=== PATIENT | female | born 1990 | race Asian ===

== ENCOUNTER 2020-07-11 17:14 | Emergency (ER) | payer OTHER, SELFPAY ==
[2020-07-11 19:39] VITALS: BP 151/87; PULSE 80; RESP 16; TEMP 36; O2SAT 96; BMI 25.6
[2020-07-11 20:08] LABS: MANUAL DIFF FLAG NO
[2020-07-11 20:09] LABS: Basophils Percent Auto 0.3 % (0-2); Eosinophils Absolute Auto 0.1 X10*3/uL (0.0-0.4); Eosinophils Percent Auto 0.8 % (0-4); Hematocrit 43.1 % (37-47); Imm Gran Abs Auto 0.02 X10*3/uL (0.00-0.03); Imm Gran Pct Auto 0.2 % (0.0-0.4); Lymphocytes Absolute Auto 3.3 X10*3/uL (1.2-4.9); Lymphocytes Percent Auto 34.1 % (20-40); Mean Corpuscular HGB Conc 32.5 g/dl (31.0-35.0); Mean Corpuscular Volume 83.2 fL (80-98); Mean Platelet Volume 8.5 fL (9.4-12.3); Monocytes Absolute Auto 0.7 X10*3/uL (0.1-1.2); Monocytes Percent Auto 7.7 % (2-11); Neutrophils Absolute Auto 5.4 X10*3/uL (2.0-8.3); Neutrophils Percent Auto 56.9 % (45-73); Platelet Count 334 X10*3/uL (160-400); Red Blood Count 5.18 X10*6/uL (4.20-5.50); Red Cell Distribution Width 12.6 % (11.0-16.0); White Blood Count 9.5 X10*3/uL (4.8-10.8)
[2020-07-11 20:11] LABS: Appearance Urine CLEAR; Color Urine YELLOW; Glucose Urine UA NEG (NEG); Leukocyte Esterase Urine NEG (NEG); Nitrite Urine NEG (NEG); PH 6.5 (5.0-8.0); Urine Blood NEG (NEG); Urine Ketones 5 MG/DL (NEG); Urine Protein NEG (NEG-TRACE)
[2020-07-11 20:13] LABS: UPreg QC Valid YES; Urine Pregnancy NEGATIVE (NEGATIVE)
[2020-07-11 20:35] LABS: Alanine Aminotransferase 14 U/L (0-31); Albumin Level 4.2 g/dL (3.5-5.0); Alkaline Phosphatase 58 U/L (39-117); Anion Gap 17 (12-20); Aspartate Amino Transferase 15 U/L (5-31); Bilirubin Total 0.5 mg/dL (0.0-1.0); Blood Urea Nitrogen 16 mg/dL (9-16); Carbon Dioxide 22 mmol/L (22-29); Chloride 105 mmol/L (96-108); Creatinine Clr Calc Pharmacy 104.9; Estimated Glomerular Filt Rate > 60; Glucose Random 82 mg/dL (60-115); Potassium 4.2 mmol/L (3.3-5.1); Sodium 140 mmol/L (135-145); Total Protein 7.2 g/dL (6.5-8.0)
--- NOTE | 2020-07-11 22:34 | PC.NURSE ---
Pt reports having her second Moderna vaccine on 06/30. Pt reports elevated fever, CAMILO, bodyaches, chills, dizziness and N/V. Pt had a gastric bypass on 07/19/19. Pt reports decreased PO, states she is unable to hold anything down. Pt reports poor PO for days. Pt also reporting persistent episodes of vomiting the last several days. MD at bedside for primary eval.
--- NOTE | 2020-07-11 22:35 | ECG_ITS ---
Test Reason : PAPITATIONS Blood Pressure : / mmHG Vent. Rate : 062 BPM Atrial Rate : 062 BPM P-R Int : 128 ms QRS Dur : 094 ms QT Int : 426 ms P-R-T Axes : 049 067 058 degrees QTc Int : 432 ms Normal sinus rhythm with sinus arrhythmia Normal ECG No previous ECGs available Referred By: Sangita Johnson Electronically Signed By:JOSEF DAMIAN
[2020-07-11 22:37] VITALS: BP 133/93; PULSE 74; RESP 16
[2020-07-11 22:46] VITALS: BP 130/92; PULSE 75
--- NOTE | 2020-07-11 22:46 | ED.GENADULT ---
HPI - General Adult General Chief complaint: Dizziness Stated complaint: DIZZINESS Time Seen by Provider: 07/11/20 22:32 Source: patient Mode of arrival: ambulatory Limitations: no limitations History of Present Illness HPI narrative: Patient comes emergency room complaining of feeling dizzy since her 2nd dose of mother the injection. Patient states it happened on June 30. 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 Patient states that for the last month she has been complaining of right lower quadrant pain, she has been worked up at [facility], seems to have gallstones, but nothing has been new since her injection of mother in a on June. MD complaint: Dizziness Related Data Previous Rx's Medication Instructions Recorded promethazine 25 mg PO Q6H PRN #14 tab 07/11/20 Allergies Allergy/AdvReac Type Severity Reaction Status Date / Time No Known Allergies Allergy Verified 07/11/20 19:39 Review of Systems Review of Systems: Constitutional : No Weight loss, No Fever, No Chills, No Night Sweats, had fever after the moderna injection, now resolved ENT/Mouth : No Hearing loss, No Ear Pain, No Nasal Congestion, No Sinus Pain, No Hoarseness, No sore throat, No Rhinorrhea, No Swallowing Difficulty Eyes: No Eye Pain, No Swelling, No Redness, No Foreign Body, No Discharge, No Vision Changes Cardiovascular : No Chest Pain, No SOB, had episodes of dyspnea after the injection, none in the last few days Respiratory : No Cough, No Sputum, No Wheezing, No Smoke Exposure, No Dyspnea Gastrointestinal : No Nausea, No Vomiting, No Diarrhea, No Constipation, No abdominal Pain, No Hematochezia, No Melena Genitourinary : no irregular bleeding, No Dysuria, No Urinary Frequency, No Hematuria, No Urinary Incontinence, No Urgency, No Flank Pain, No Urinary Flow Changes, No Hesitancy Musculoskeletal : No joint pain, No Myalgias, No Joint Swelling Skin : No Skin Lesions, No rash Neuro : No Weakness, No Numbness, No Paresthesias, No Loss of Consciousness, No Dizziness, No Headache Psych : Mild anxiety, No Depression, No SI/HI/AH/VH, No Social Issues, Heme/Lymph: No Bruising, No Bleeding,No Lymphadenopathy Endocrine : No Polyuria, No Polydipsia, No Temperature Intolerance [facility] Past Medical History Medical History (Updated 07/11/20 @ 23:59 by Sangita Johnson MD) Joint pain PCOS (polycystic ovarian syndrome) Surgical History (Updated 07/11/20 @ 19:43 by Mitali Burns) History of Yair-en-Y gastric bypass Hx of shoulder surgery Social History Social History Advance Directives: No Advance Directives Information Provided: Yes Physical Exam Vital Signs: Vital Signs: Last Vital Signs Temp 96.8 F 07/11/20 19:39 Pulse 72 07/12/20 00:13 Resp 16 07/12/20 00:13 BP 135/84 07/12/20 00:13 Pulse Ox 99 07/12/20 00:13 Body Mass Index 25.6 Course Course Course Narrative: Since the patient has been in the emergency room, she has not had any episodes of vomiting or diarrhea. Patient's orthostatics were normal, her labs were normal, EKG normal, patient was walked around the emergency room, she did not have shortness of breath, drop in oxygen saturation, or tachycardia. I discussed with the patient that if she continues having the symptoms, she may need a Holter monitor. Patient states that she has Zofran at home, does not help with the nausea. Discussed with the patient trying Phenergan which she agrees. Medical Decision Making Lab Data Result diagrams: 07/11/20 19:50 07/11/20 19:50 Labs: Lab Results 07/11/20 07/11/20 07/11/20 Range/Units 19:50 19:50 19:50 WBC 9.5 (4.8-10.8) X10*3/uL RBC 5.18 (4.20-5.50) X10*6/uL Hgb 14.0 (12.0-16.0) g/dl Hct 43.1 (37-47) % MCV 83.2 (80-98) fL MCH 27.0 (27.0-33.0) pg MCHC 32.5 (31.0-35.0) g/dl RDW 12.6 (11.0-16.0) % Plt Count 334 (160-400) X10*3/uL MPV 8.5 L (9.4-12.3) fL Immature Gran % (Auto) 0.2 (0.0-0.4) % Neut % (Auto) 56.9 (45-73) % Lymph % (Auto) 34.1 (20-40) % [place] % (Auto) 7.7 (2-11) % Eos % (Auto) 0.8 (0-4) % Baso % (Auto) 0.3 (0-2) % Lymph # (Auto) 3.3 (1.2-4.9) X10*3/uL [place] # (Auto) 0.7 (0.1-1.2) X10*3/uL Eos # (Auto) 0.1 (0.0-0.4) X10*3/uL Baso # (Auto) 0.0 (0.0-0.2) X10*3/uL Abs Immat Gran (auto) 0.02 (0.00-0.03) X10*3/uL Absolute Neuts (auto) 5.4 (2.0-8.3) X10*3/uL Absolute Nucleated RBC 0.000 (0.0-0.012) X10*3/uL Nucleated RBC % (auto) 0.0 (0.0-0.2) /100WBC Sodium 140 (135-145) mmol/L Potassium 4.2 (3.3-5.1) mmol/L Chloride 105 (96-108) mmol/L Carbon Dioxide 22 (22-29) mmol/L Anion Gap 17 (12-20) BUN 16 (9-16) mg/dL Creatinine 0.79 (0.5-1.4) mg/dL Estim Creat Clear Calc 104.9 Estimated GFR > 60 Random Glucose 82 (60-115) mg/dL Calcium 9.0 (8.4-10.2) mg/dL Total Bilirubin 0.5 (0.0-1.0) mg/dL AST 15 (5-31) U/L ALT 14 (0-31) U/L Alkaline Phosphatase 58 (39-117) U/L Troponin I High Sens < 3.5 (<3.5-17.0) ng/L Total Protein 7.2 (6.5-8.0) g/dL Albumin 4.2 (3.5-5.0) g/dL Urine Color Urine Appearance Urine pH (5.0-8.0) Ur Specific [place] (1.005-1.025) Urine Protein (NEG-TRACE) MG/DL Urine Glucose (UA) (NEG) MG/DL Urine Ketones (NEG) MG/DL Urine Blood (NEG) Urine Nitrite (NEG) Ur Leukocyte Esterase (NEG) Urine Test (NEGATIVE) 07/11/20 Range/Units 19:58 WBC (4.8-10.8) X10*3/uL RBC (4.20-5.50) X10*6/uL Hgb (12.0-16.0) g/dl Hct (37-47) % MCV (80-98) fL MCH (27.0-33.0) pg MCHC (31.0-35.0) g/dl RDW (11.0-16.0) % Plt Count (160-400) X10*3/uL MPV (9.4-12.3) fL Immature Gran % (Auto) (0.0-0.4) % Neut % (Auto) (45-73) % Lymph % (Auto) (20-40) % [place] % (Auto) (2-11) % Eos % (Auto) (0-4) % Baso % (Auto) (0-2) % Lymph # (Auto) (1.2-4.9) X10*3/uL [place] # (Auto) (0.1-1.2) X10*3/uL Eos # (Auto) (0.0-0.4) X10*3/uL Baso # (Auto) (0.0-0.2) X10*3/uL Abs Immat Gran (auto) (0.00-0.03) X10*3/uL Absolute Neuts (auto) (2.0-8.3) X10*3/uL Absolute Nucleated RBC (0.0-0.012) X10*3/uL Nucleated RBC % (auto) (0.0-0.2) /100WBC Sodium (135-145) mmol/L Potassium (3.3-5.1) mmol/L Chloride (96-108) mmol/L Carbon Dioxide (22-29) mmol/L Anion Gap (12-20) BUN (9-16) mg/dL Creatinine (0.5-1.4) mg/dL Estim Creat Clear Calc Estimated GFR Random Glucose (60-115) mg/dL Calcium (8.4-10.2) mg/dL Total Bilirubin (0.0-1.0) mg/dL AST (5-31) U/L ALT (0-31) U/L Alkaline Phosphatase (39-117) U/L Troponin I High Sens (<3.5-17.0) ng/L Total Protein (6.5-8.0) g/dL Albumin (3.5-5.0) g/dL Urine Color YELLOW Urine Appearance CLEAR Urine pH 6.5 (5.0-8.0) Ur Specific [place] 1.010 (1.005-1.025) Urine Protein NEG (NEG-TRACE) MG/DL Urine Glucose (UA) NEG (NEG) MG/DL Urine Ketones 5 (NEG) MG/DL Urine Blood NEG (NEG) Urine Nitrite NEG (NEG) Ur Leukocyte Esterase NEG (NEG) Urine Test NEGATIVE (NEGATIVE) ECG Data Attestation: I personally reviewed and interpreted this ECG as follows: (Heart rate 62, sinus rhythm, no ST segment depressions or elevations, no T-wave inversions, QTC 432) Discharge Plan Discharge Clinical Impression: Dizziness, Nausea Patient Disposition: Home, Self-Care Instructions: Dizziness (ED) Additional Instructions: Please follow-up with your primary care physician tomorrow. If you have any worsening or new symptoms, please return to the emergency room or call 911 Prescriptions: New promethazine 25 mg tablet 25 mg PO Q6H PRN (Reason: nausea and vomiting) Qty: 14 RF: 0 Interventions: ED Discharge Assessment Last Done: 07/12/20 00:16 Discharge Date/Time: 07/12/20 00:16
[2020-07-11 22:48] VITALS: BP 129/63; PULSE 66
[2020-07-11 22:49] VITALS: BP 128/86; PULSE 72
--- NOTE | 2020-07-11 22:58 | PC.NURSE ---
Orthos and EKG obtained by this RN.
[2020-07-11 23:24] LABS: Troponin-I High Sensitivity < 3.5 ng/L (<3.5-17.0)
--- NOTE | 2020-07-11 23:24 | PC.NURSE ---
While ambulating in the halls, HR remained stable @ 80-84 bpm. Pt reporting SOB and palpitations while ambulating. aware.
[2020-07-12 00:13] VITALS: BP 135/84; PULSE 72; RESP 16; O2SAT 99
== END 2020-07-12 00:16 | disposition home or self-care (01) ==
PROVIDERS: Emergency Provider Emergency Medicine; PCP Nurse Practitioner Family
DX: R42 Dizziness and giddiness (principal); R11.0 Nausea
CPT/HCPCS: 36415; 80053; 81003; 81025; 84484; 85025; 93005; 99284

== ENCOUNTER → 2024-08-08 13:42 | Outpatient (BNV) | payer OTHER, SELFPAY | PROVIDERS: PCP Nurse Practitioner Family; Visit Provider Nurse Practitioner Family | DX: D64.9 Anemia, unspecified (principal) | CPT/HCPCS: 99204 ==

== ENCOUNTER 2024-08-19 13:00 | Outpatient (RCR) | payer OTHER, SELFPAY ==
[2024-08-12 11:50] VITALS: BP 126/62; PULSE 88; RESP 16; TEMP 36.6; O2SAT 99
[2024-08-12] MEDS: Ferric Carboxymaltose 750 MG in 0.9 % Sodium Chloride 250 ML 1060 MG IV (12:36)
[2024-08-19 12:49] VITALS: BP 107/63; PULSE 77; RESP 16; TEMP 36.4; O2SAT 99
[2024-08-19] MEDS: Ferric Carboxymaltose 750 MG in 0.9 % Sodium Chloride 250 ML 1060 MG IV (13:29)
== END 2024-08-19 13:56 | disposition home or self-care (01) ==
LOC: HO.INF 13:00
PROVIDERS: PCP Nurse Practitioner Family; Visit Provider Nurse Practitioner Family
DX: D64.9 Anemia, unspecified (principal)
CPT/HCPCS: 96365; J1439; J1756

== ENCOUNTER 2024-12-12 09:39 | Outpatient (REF) | payer OTHER, SELFPAY ==
--- OUTSIDE RECORDS SUMMARY | 2024-12-12 10:11 | XMS_ITS | Continuity of Care Document ---
Author Organization [facility] Address [address] [place] [address] Phone [phone] Care Team Providers Care Calender Operator Helper Name Role Phone Roula Smith CNP Care Team Information Re ceiver [phone] Social History Type Date Description Comments Sex Female Sex Unknown Marital Status Legal Status: Lives With Spouse Lives With Children Tobacco Use Start: Unknown End: Unknown Quit 2014 ETOH Use Occasionally consumes alcoho l Recreational Drug Use Regularly uses Dori abigail Allergies and adverse reactions Description No Known Drug Allergies Medications Active Medications SIG Qnty Indications Ordering Provider Date Odomrvdnalxio6cz Tablets 1 tablet by mouth at 11 pm 1tastorm Carrizales M.D. 07/28/2024 Bupropion Hydrochloride ER (SR)100mg Tablets ER 12HR Take 1 Tablet By Mouth Twice Daily. Roula Smith CNP Vital Signs Date Vital Result Comment 08/27/2023 3:20pm BP Systolic 120 mmHg BP Diastolic 78 mmHg Heart Rate 77 /min Height 65 inches 5'5 Weight 222.00 lb BMI (Body Mass Index) 36.9 kg/m2 Results Test Acquired Date Facility Test Result H/L Range N ote Comp. Metabolic Panel (14) 07/06/2024 [facility] Glucose 79 mg/dL 70-99 1 BUN 12 mg/dL 6-20 Creatinine 0.84 mg/dL 0.57-1.00 eGFR 95 mL/min/1.7 3 >59 BUN/Creatinine Ratio 14 9-23 Sodium 138 mmol/L 134-144 Potassium 4.4 mmol/L 3.5-5.2 Chloride 104 mmol/L 96-106 Carbon Dioxide, Total 21 mmol/L 20-29 Calcium 9.2 mg/dL 8.7-10.2 Protein, Total 7.2 g/dL 6.0-8.5 Albumin 4.2 g/dL 3.9-4.9 Globulin, Total 3.0 g/dL 1.5-4.5 Bilirubin, Total 0.3 mg/dL 0.0-1 .2 Alkaline Phosphatase 91 IU/L 44-121 Ast (Sgot) 13 IU/L 0-40 Alt (SGPT) 9 IU/L 0-32 Lipid Panel 07/06/2024 [facility] Cholesterol, Total 195 mg/dL 100-199 Triglycerides 78 mg/dL 0-149 HDL Cholesterol 73 mg/dL >39 VLDL Cholestero l [place] 14 mg/dL 5-40 LDL Chol Calc (Nih) 108 mg/dL High 0-99 LDL Calc Comment: TNP Hemoglobin A1c 07/06/2024 [facility] Hemoglobin A1c 5.3 % 4.8-5.6 2 TSH Rfx on Abnormal to Free T4 07/06/2024 [facility] TSH Rfx on Abnormal to Free T4 1.360 uIU/mL 0.450-4.5 00 17-Hydroxypregnen olone, MS 07/06/2024 [facility] 17 Oh Pregnenolone, Serum, MS 287 ng/dL 3 Testosterone F/Wklybd+T LC/MS 07/06/2024 [facility] Testost., % Free+Weakly Bound 13.6 % 3.0-18.0 4 Testosterone, Total, LC/MS 57.7 ng/dL High 10.0-55.0 Testost., F+W Bound 7.8 ng/dL 0.0-9.5 FSH And LH 07/06/2024 [facility] LH 18.8 mIU/mL 5 FSH 4.6 mIU/mL 6 Dhea-Sulfate 07/06/2024 [facility] Dhea-Sulfate 285.0 g/dL 84.8-378. 0 Prolactin 07/06/2024 [facility] Prolactin 18.2 ng/mL 4.8-33.4 1 Test(s) 379274-[id number] sterone, Total, LC/MS was developed and its performance characteristics determined by [facility]. It has not been cleared or approved by the Food and Drug Administration. 2 Prediabetes: 5.7 - 6 .4 Diabetes: >6.4 Glycemic control for adults with diabetes: <7.0 3 This test was develo ped and its performance characteristics determined by [facility]. It has not been cleared or approved by the Food and Drug Administration. Reference Range: Adults: 53 - 357 4 This test was develo ped and its performance characteristics determined by [facility]. It has not been cleared or approved by the Food and Drug Administration. 5 Adult Female Range Follicular phase 2.4 - 12.6 Ovulation phase 14.0 - 95.6 Luteal phase 1.0 - 11.4 Postmenopausal 7.7 - 58.5 6 Adult Female Range Follicular phase 3.5 - 12.5 Ovulation phase 4.7 - 21.5 Luteal phase 1.7 - 7.7 Postmenopausal 25.8 - 134.8 Medical Devices Description No Information Available Encounters Type Date Location Provider Dx Diagnosis Office Visit 08/27/2023 3:00p Main Office KISHA Trivedi E66.9 Obesity, unsp ecified E28.2 Polycystic ovarian s yndrome Z68.36 Body mass index [BMI ] 36.0-36.9, adult Assessments Date Code Description Provider 08/27/2023 E66.9 Obesity, unspecified KISHA Trivedi 08/27/2023 E28.2 Polycystic ovarian syndrome KISHA Trivedi 08/27/2023 Z68.36 Body mass index [BMI] 36.0-3 6.9, adult KISHA Trivedi Plan of Treatment No Information Available Functional Status Description No Information Available Mental Status Description No Information Available Referrals Description No Information Available
--- OUTSIDE RECORDS SUMMARY | 2024-12-12 10:11 | XMS_ITS | Encounter Summary ---
Author Organization [facility] Address [address] [place] [phone] Phone Care Team Providers Care Foreign Language Teacher Name Role Phone Winsome Browning DUAL RATE SUPERVISOR Primary Care Provider Un available Encounter Details Date Type Department Care Team (Late st Contact Info) Description 02/07/2011 Documentation [facility] Family Medicine [address] [place] [address] Family Medicine, Physician [address] [place] [place], [place] [id number] Social History Tobacco Use Types Packs/Day Years Used Date Smoking Tobacco: Never Assessed Comments Unknown Sex and Gender Information Value Date Recorded Sex Assigned at Not on file Legal Sex Female 4:40 PM EDT Gender Identity Not on file Sexual Orientation Not on file documented as of this encounter Plan of Treatment Not on file documented as of this encounter Visit Diagnoses Not on filedocumented in this encounter Care Teams Foreign Language Teacher Relationship Specialty Start Date End Date Winsome Browning NP PCP - General 01/16/17 documented as of this encounter
[2024-12-12 10:18] LABS: MANUAL DIFF FLAG NO
[2024-12-12 10:52] LABS: Hematocrit 40.3 % (37.0-47.0); Hemoglobin 13.5 g/dl (12.0-16.0); Imm Gran Abs Auto 0.02 X10*3/uL (0.00-0.03); Imm Gran Pct Auto 0.3 % (0.0-0.4); Lymphocytes Absolute Auto 2.0 X10*3/uL (1.2-4.9); Mean Corpuscular HGB Conc 33.5 g/dl (31.0-35.0); Mean Corpuscular Hemoglobin 28.1 pg (27.0-33.0); Mean Corpuscular Volume 83.8 fL (80.0-98.0); NRBC Abs Auto 0.000 X10*3/uL (0.0-0.012); NRBC Pct Auto 0.0 /100WBC (0.0-0.2); Platelet Count 314 X10*3/uL (160-400); Red Blood Count 4.81 X10*6/uL (4.20-5.50); White Blood Count 8.0 X10*3/uL (4.8-10.8)
[2024-12-12 12:01] LABS: Ferritin 77 ng/mL (10-122)
[2024-12-12 12:17] LABS: Anion Gap 12 (12-20)
[2024-12-12 12:22] LABS: Alanine Aminotransferase 17 U/L (0-31); Albumin Level 4.5 g/dL (3.5-5.0); Alkaline Phosphatase 87 U/L (39-117); Aspartate Amino Transferase 20 U/L (5-31); Blood Urea Nitrogen 14 mg/dL (9-16); Calcium 9.0 mg/dL (8.4-10.2); Carbon Dioxide 26 mmol/L (22-29); Chloride 107 mmol/L (96-108); Estimated Glomerular Filt Rate > 60; Iron 62 mcg/dL (30-160); Percent Iron Saturation 18 % (15-50); Potassium 4.3 mmol/L (3.3-5.1); Sodium 141 mmol/L (135-145); Total Iron Binding Capacity 339 mcg/dL (228-428); Total Protein 7.4 g/dL (6.5-8.0); Unsaturated Iron Binding 277 ug/dL
== END 2024-12-12 09:40 | disposition home or self-care (01) ==
LOC: HO.LAB 09:39
PROVIDERS: PCP Nurse Practitioner Family; Visit Provider Nurse Practitioner Family
DX: D64.9 Anemia, unspecified (principal)
CPT/HCPCS: 36415; 80053; 82728; 82784; 83540; 85025; 86334